=== PATIENT | female | born 1960 | race Asian ===

== ENCOUNTER 2022-10-16 16:28 | Emergency (ER) | payer OTHER, SELFPAY ==
--- NOTE | ~2022-10-16 | CT_ITS ---
EXAMINATION: CT ABDOMEN AND PELVIS WITHOUT CONTRAST CLINICAL INFORMATION: Left lower quadrant pain. Question colitis. COMPARISON: None available. TECHNIQUE: Multidetector volumetric imaging was performed from the superior aspect of the liver through the pubic symphysis. Sagittal and coronal reformatted images were obtained on the technologist's workstation. This CT examination was performed using dose optimization techniques as appropriate, variously including the following: *Automated exposure control *Adjustment of mA and/or kV according to patient size (this includes techniques or standardized protocols for targeted exams where dose is matched to indication/reason for exam; i.e. extremities or head) *Use of iterative reconstruction technique DLP: Full 90 mGy-cm FINDINGS: LUNG BASES: The visualized lung bases are unremarkable. LIVER, GALLBLADDER, AND BILIARY TREE: The liver is normal in size, shape, and attenuation. No focal hepatic lesion or biliary ductal dilatation is present. The gallbladder is partially distended with no evidence of radiopaque gallstones, gallbladder wall thickening, or obvious pericholecystic inflammatory changes. PANCREAS: Unremarkable. SPLEEN: Unremarkable. ADRENAL GLANDS: Unremarkable. KIDNEYS AND URETERS: The kidneys are normal in size, shape, and attenuation. No hydronephrosis, hydroureter, or calculi seen. No perinephric stranding. BLADDER: Unremarkable. GASTROINTESTINAL TRACT: Stomach has luminal contents limiting evaluation. No dilated small or large bowel loops. Small-moderate volume stool in the large colon. No acute large bowel inflammatory changes are seen. The appendix is not clearly visualized. No visualized inflammatory changes in the expected region of the appendix. No free fluid. No free air. ABDOMINAL WALL: No significant hernia is appreciated. LYMPH NODES: No pathologically enlarged lymph nodes are seen. VASCULAR: Normal caliber aorta, scattered atherosclerotic calcification... PELVIC VISCERA: No acute findings evident by CT.. OSSEOUS STRUCTURES: No acute or suspicious osseous abnormality. Mild degenerative changes in the spine. Mild bilateral SI joint arthritis. CT/CT abdomen pelvis wo IV con IMPRESSION: 1. No acute intra-abdominal findings evident by CT. Cause of the patient's symptoms has not been determined by CT. Clinically correlate. Further evaluation/follow-up imaging as clinically warranted. 2. Additional findings and details as above. Fleischner guidelines were followed.
[2022-10-16 16:30] VITALS: BP 139/78; PULSE 78; RESP 18; TEMP 36.6; O2SAT 97; BMI 31.5
--- NOTE | 2022-10-16 16:30 | ED.GENADULT ---
HPI - General Adult General Chief complaint: Abdominal Pain Stated complaint: Abdominal pain/Vomiting Time Seen by Provider: 10/16/22 16:41 Source: patient Mode of arrival: ambulatory Limitations: no limitations History of Present Illness HPI narrative: Patient is 62 years old with no significant abdominal complaints in the past does have history of hypertension and diabetes well controlled travel from [place] last month was feeling okay since arrival last 3 days having lower abdominal discomfort with diarrhea with bright red blood with every bowel movement patient does move her bowels after eating has some nausea vomited 3- 4 times yesterday no other family member sick no recent antibiotic use no other family member sick no fever or chills Related Data Previous Rx's Medication Instructions Recorded dicyclomine 20 mg tablet 20 mg PO TID PRN abdominal pain 10/16/22 #14 tabs ondansetron 4 mg disintegrating 4 mg PO Q6-8H PRN nausea and 10/16/22 tablet vomiting #7 tabs Allergies Allergy/AdvReac Type Severity Reaction Status Date / Time No Known Allergies Allergy Verified 10/16/22 16:39 Review of Systems Review of Systems: Yes all other systems are reviewed and are negative [facility] Past Medical History Medical History (Updated 10/17/22 @ 00:03 by Fidelia Julien) Diabetes mellitus Hypertension Social History Social History Smoked in Last 30 Days: No Use of substances other than those prescribed or required for medical reasons: No Advance Directives: No Advance Directives Information Provided: No Physical Exam ED Vital Signs: Vital Signs - 24 hr 10/16/22 16:30 10/16/22 17:04 10/16/22 18:08 Temperature 97.9 F 98.0 F 98.4 F Pulse Rate 78 74 65 Respiratory Rate 18 18 18 Blood Pressure 139/78 129/74 131/63 Pulse Oximetry 97 97 95 Oxygen Delivery Method Room Air Room Air Room Air BMI result Body Mass Index 31.5 Appearance: Alert. Oriented X3. No acute distress. Eyes: PERRLA, No Nystagmus ENT: Pharynx normal. Oral Mucosa moist Neck: Normal inspection. Neck supple. CVS: Normal heart rate and rhythm. Pulses normal. Respiratory: No respiratory distress. Equal air entry bilateral, no wheezing/rales/rhonchi Abdomen: Soft, mild tenderness left lower quadrant no rebound tenderness/ guarding Bowel sounds are present, no mass palpable, no CVA tenderness Skin: Skin warm and dry. Normal skin color. Normal skin turgor. Extremities: No lower extremity edema. No calf tenderness Neuro: Oriented X 3. No motor deficit. No sensory deficit.No cerebellar signs , cranial nerves II-XII intact Course Course Course Narrative: RME performed by Keke Edmond PA-C. Patient is a 62 year old assigned female at presenting to the emergency department with abdominal pain, nausea, and diarrhea. Labs ordered. Patient placed back in the waiting room pending room availability and results. Medications Administered Discontinued Medications Generic Name Dose Route Start Last Admin Trade Name Freq PRN Reason Stop Dose Admin Dicyclomine HCl 20 mg 10/16/22 17:56 10/16/22 18:35 Dicyclomine Hcl 10 Mg Capsule PO 10/16/22 17:57 20 mg ONCE ONE Administration Ondansetron HCl 4 mg 10/16/22 18:15 10/16/22 18:35 Ondansetron Odt 4 Mg Tab.Rapdis TRANSLINGU 10/16/22 18:16 4 mg ONCE ONE Administration Medical Decision Making Medical Decision Making [facility] Narrative: Patient acute gastroenteritis likely viral labs are stable CT scan negative taking p.o. fluids feeling much better discharge patient home on Bentyl and Zofran Lab Data [facility] Lab Attestation statement: I reviewed the patient's lab results. 10/16/22 16:44 10/16/22 16:44 Labs: Lab Results 10/16/22 10/16/22 10/16/22 Range/Units 16:44 16:44 16:44 WBC 8.3 (4.8-10.8) X10*3/uL RBC 4.35 (4.20-5.50) X10*6/uL Hgb 12.9 (12.0-16.0) g/dl Hct 37.9 (37.0-47.0) % MCV 87.1 (80.0-98.0) fL MCH 29.7 (27.0-33.0) pg MCHC 34.0 (31.0-35.0) g/dl RDW 12.9 (11.0-16.0) % Plt Count 303 (160-400) X10*3/uL MPV 9.7 (9.4-12.3) fL Immature Gran % (Auto) 0.2 (0.0-0.4) % Neut % (Auto) 59.7 (45-73) % Lymph % (Auto) 30.6 (20-40) % [place] % (Auto) 6.6 (2-11) % Eos % (Auto) 2.4 (0-4) % Baso % (Auto) 0.5 (0-2) % Lymph # (Auto) 2.6 (1.2-4.9) X10*3/uL [place] # (Auto) 0.6 (0.1-1.2) X10*3/uL Eos # (Auto) 0.2 (0.0-0.4) X10*3/uL Baso # (Auto) 0.0 (0.0-0.2) X10*3/uL Abs Immat Gran (auto) 0.02 (0.00-0.03) X10*3/uL Absolute Neuts (auto) 5.0 (2.0-8.3) x10*3/uL Absolute Nucleated RBC 0.000 (0.0-0.012) X10*3/uL Nucleated RBC % (auto) 0.0 (0.0-0.2) /100WBC Sodium 139 (135-145) mmol/L Potassium 4.0 (3.3-5.1) mmol/L Chloride 107 (96-108) mmol/L Carbon Dioxide 25 (22-29) mmol/L Anion Gap 11 L (12-20) BUN 15 (9-16) mg/dL Creatinine 0.81 (0.5-1.4) mg/dL Estim Creat Clear Calc 64.0 Estimated GFR > 60 Random Glucose 169 H (60-115) mg/dL Calcium 9.3 (8.4-10.2) mg/dL Magnesium 1.9 (1.6-2.6) mg/dL Total Bilirubin 0.3 (0.0-1.0) mg/dL AST 14 (5-31) U/L ALT 11 (0-31) U/L Alkaline Phosphatase 51 (39-117) U/L Total Protein 7.2 (6.5-8.0) g/dL Albumin 3.8 (3.5-5.0) g/dL TSH 1.27 (0.32-4.0) uIU/mL Urine Color Urine Appearance Urine pH (5.0-9.0) Ur Specific [place] (1.005-1.025) Urine Protein (Neg-Trace) mg/dL Urine Glucose (UA) (Negative) mg/dL Urine Ketones (Negative) mg/dL Urine Blood (Negative) Urine Nitrite (Negative) Ur Leukocyte Esterase (Negative) COVID-19 (NAYE) Negative (Negative) COVID-19 Clin Com See Note 10/16/22 Range/Units 19:05 WBC (4.8-10.8) X10*3/uL RBC (4.20-5.50) X10*6/uL Hgb (12.0-16.0) g/dl Hct (37.0-47.0) % MCV (80.0-98.0) fL MCH (27.0-33.0) pg MCHC (31.0-35.0) g/dl RDW (11.0-16.0) % Plt Count (160-400) X10*3/uL MPV (9.4-12.3) fL Immature Gran % (Auto) (0.0-0.4) % Neut % (Auto) (45-73) % Lymph % (Auto) (20-40) % [place] % (Auto) (2-11) % Eos % (Auto) (0-4) % Baso % (Auto) (0-2) % Lymph # (Auto) (1.2-4.9) X10*3/uL [place] # (Auto) (0.1-1.2) X10*3/uL Eos # (Auto) (0.0-0.4) X10*3/uL Baso # (Auto) (0.0-0.2) X10*3/uL Abs Immat Gran (auto) (0.00-0.03) X10*3/uL Absolute Neuts (auto) (2.0-8.3) x10*3/uL Absolute Nucleated RBC (0.0-0.012) X10*3/uL Nucleated RBC % (auto) (0.0-0.2) /100WBC Sodium (135-145) mmol/L Potassium (3.3-5.1) mmol/L Chloride (96-108) mmol/L Carbon Dioxide (22-29) mmol/L Anion Gap (12-20) BUN (9-16) mg/dL Creatinine (0.5-1.4) mg/dL Estim Creat Clear Calc Estimated GFR Random Glucose (60-115) mg/dL Calcium (8.4-10.2) mg/dL Magnesium (1.6-2.6) mg/dL Total Bilirubin (0.0-1.0) mg/dL AST (5-31) U/L ALT (0-31) U/L Alkaline Phosphatase (39-117) U/L Total Protein (6.5-8.0) g/dL Albumin (3.5-5.0) g/dL TSH (0.32-4.0) uIU/mL Urine Color Yellow Urine Appearance Clear Urine pH 5.5 (5.0-9.0) Ur Specific [place] 1.010 (1.005-1.025) Urine Protein Negative (Neg-Trace) mg/dL Urine Glucose (UA) Negative (Negative) mg/dL Urine Ketones Negative (Negative) mg/dL Urine Blood Negative (Negative) Urine Nitrite Negative (Negative) Ur Leukocyte Esterase Negative (Negative) COVID-19 (NAYE) (Negative) COVID-19 Clin Com Discharge Plan Discharge Clinical Impression: Gastroenteritis Patient Disposition: Home, Self-Care Instructions: Gastroenteritis (ED) Additional Instructions: Drink plenty of fluids Take medication for nausea and bowel spasm if needed Follow with PCP if not better Prescriptions: New dicyclomine 20 mg tablet 20 mg PO TID PRN (Reason: abdominal pain) Qty: 14 0RF ondansetron 4 mg tablet,disintegrating 4 mg PO Q6-8H PRN (Reason: nausea and vomiting) Qty: 7 0RF Interventions: ED Discharge Assessment Last Done: 10/16/22 19:31 Discharge Date/Time: 10/16/22 19:53 Print Language: Arabic
[2022-10-16 16:48] LABS: MANUAL DIFF FLAG NO
[2022-10-16 16:53] LABS: Basophils Percent Auto 0.5 % (0-2); Eosinophils Absolute Auto 0.2 X10*3/uL (0.0-0.4); Eosinophils Percent Auto 2.4 % (0-4); Hematocrit 37.9 % (37.0-47.0); Hemoglobin 12.9 g/dl (12.0-16.0); Imm Gran Abs Auto 0.02 X10*3/uL (0.00-0.03); Imm Gran Pct Auto 0.2 % (0.0-0.4); Lymphocytes Absolute Auto 2.6 X10*3/uL (1.2-4.9); Lymphocytes Percent Auto 30.6 % (20-40); Mean Corpuscular Hemoglobin 29.7 pg (27.0-33.0); Mean Corpuscular Volume 87.1 fL (80.0-98.0); Mean Platelet Volume 9.7 fL (9.4-12.3); Monocytes Absolute Auto 0.6 X10*3/uL (0.1-1.2); Monocytes Percent Auto 6.6 % (2-11); Neutrophils Percent Auto 59.7 % (45-73); Platelet Count 303 X10*3/uL (160-400); Red Blood Count 4.35 X10*6/uL (4.20-5.50); Red Cell Distribution Width 12.9 % (11.0-16.0); White Blood Count 8.3 X10*3/uL (4.8-10.8)
[2022-10-16 17:04] VITALS: BP 129/74; PULSE 74; RESP 18; TEMP 36.7; O2SAT 97
[2022-10-16 17:11] LABS: COVID-19 Test Negative (Negative); IDNOW Serial# BCCEAD1C
[2022-10-16 17:36] LABS: Alanine Aminotransferase 11 U/L (0-31); Albumin Level 3.8 g/dL (3.5-5.0); Alkaline Phosphatase 51 U/L (39-117); Anion Gap 11 (12-20); Aspartate Amino Transferase 14 U/L (5-31); Bilirubin Total 0.3 mg/dL (0.0-1.0); Blood Urea Nitrogen 15 mg/dL (9-16); Calcium 9.3 mg/dL (8.4-10.2); Carbon Dioxide 25 mmol/L (22-29); Chloride 107 mmol/L (96-108); Estimated Glomerular Filt Rate > 60; Glucose Random 169 mg/dL (60-115); Magnesium 1.9 mg/dL (1.6-2.6); Sodium 139 mmol/L (135-145); Total Protein 7.2 g/dL (6.5-8.0)
[2022-10-16 18:08] VITALS: BP 131/63; PULSE 65; RESP 18; TEMP 36.9; O2SAT 95
[2022-10-16] MEDS: Ondansetron ODT 4 MG TAB.RAPDIS TRANSLINGU (18:35)
[2022-10-16] MEDS: Dicyclomine HCl 10 MG CAPSULE 20 MG PO (18:35)
--- NOTE | 2022-10-16 18:42 | PC.NURSE ---
Pt urine sent to lab, pending results.
[2022-10-16 19:19] LABS: Appearance Urine Clear; Color Urine Yellow; Glucose Urine UA Negative (Negative); Leukocyte Esterase Urine Negative (Negative); Nitrite Urine Negative (Negative); PH 5.5 (5.0-9.0); Urine Blood Negative (Negative); Urine Ketones Negative (Negative); Urine Protein Negative (Neg-Trace)
[2022-10-16 21:19] LABS: Thyroid Stimulating Hormone 1.27 uIU/mL (0.32-4.0)
== END 2022-10-16 19:53 | disposition home or self-care (01) ==
PROVIDERS: Internal Medicine Gastroenterology; Physician Assistant Medical; Emergency Provider Internal Medicine
DX: K52.9 Noninfective gastroenteritis and colitis, unspecified (principal); Z20.822 Contact with and (suspected) exposure to COVID-19; Z20.828 Contact with and (suspected) exposure to other viral communicable diseases; Z79.899 Other long term (current) drug therapy
CPT/HCPCS: 74176; 80053; 81003; 83735; 84443; 85025; 87635; 99284